=== PATIENT | male | born 1950 | race Caucasian/White ===

== ENCOUNTER 2021-02-12 18:18 | Observation (INO) | payer MEDICARE ==
[2021-02-12] MEDS ORDERED: Sodium Chloride 0.9% 1000 ML 1,000 ML IV STA (19:48)
[2021-02-12] MEDS ORDERED: Zofran 4 MG/2 ML VIAL IV ONE (19:48)
[2021-02-12] MEDS ORDERED: Hydromorphone 1 mg/ml Injection IV ONE (19:48)
[2021-02-12] MEDS ORDERED: PROTONIX 40 MG IV IV ONE ×2 (19:48→19:55)
--- NOTE | 2021-02-12 19:52 | ERPHSYRPT ---
- History of Present Illness Time Seen by Provider: 02/12/21 18:20 Historian: patient Exam Limitations: no limitations Physician History: 70 years old male with history of diabetes mellitus, hypertension presented in the ER with chief complaint of hematuria and abdominal pain. Patient report at 2 PM he started to have hematuria/jaspreet blood in urine and around 5 PM today started epigastric and right-sided abdominal pain moderate to severe sharp nature, partial relief after taking NSAIDs but still rates 9/10 intensity with associated nausea but no vomiting. Denies any significant aggravating factors. Denies any history of hematuria before but does have history of kidney stones in the remote past. Is not taking any blood thinner. No fever or chills reported. Timing/Duration: hour(s) (3), constant, sudden, worse Activities at Onset: rest Quality: sharpness Abdominal Pain Onset Location: RUQ, RLQ, epigastric, flank Pain Radiation: no radiation Severity of Pain-Max: severe Severity of Pain-Current: severe Modifying Factors: Improves With: nothing Associated Symptoms: nausea, No vomiting Previous symptoms: no prior history Allergies/Adverse Reactions: No Known Drug Allergies Allergy (Unverified 02/12/21 20:00) Home Medications: Aspirin 81 gm Chew [Baby Aspirin 81 mg Chew] 81 mg PO DAILY 02/12/21 [History] Dutasteride 0.5 MG [Avodart 0.5 MG] 1 tab PO DAILY 02/12/21 [History] Fenofibrate Nanocrystallized [Fenofibrate] 145 mg PO DAILY 02/12/21 [History] Losartan Potassium 50 mg [Cozaar 50 MG] 50 mg PO DAILY 02/12/21 [History] Metformin HCl [Glucophage] 1,000 mg PO BID 02/12/21 [History] No Reportable Medications [No Reported Medications] 02/12/21 [History] Pravastatin Sodium 40 mg PO HS 02/12/21 [History] Tamsulosin HCl 0.4 mg [Flomax 0.4 MG] 1 tab PO BID 02/12/21 [History] - Review of Systems Constitutional: No Symptoms Eyes: No Symptoms Ears, Nose, & Throat: No Symptoms Respiratory: No Symptoms Cardiac: No Symptoms Abdominal/Gastrointestinal: Abdominal Pain, Nausea Genitourinary Symptoms: Hematuria Musculoskeletal: No Symptoms Skin: No Symptoms Neurological: No Symptoms Psychological: No Symptoms Endocrine: No Symptoms Hematologic/Lymphatic: No Symptoms Immunological/Allergic: No Symptoms - Nursing Vital Signs Nursing Vital Signs: Initial Vital Signs Temperature 96.5 F 02/12/21 19:45 Pulse Rate 53 L 02/12/21 19:45 Respiratory Rate 16 02/12/21 19:45 Blood Pressure 180/78 02/12/21 19:45 O2 Sat by Pulse Oximetry 99 02/12/21 19:45 Pain Scale Pain Intensity 5 - Physical Exam General Appearance: no apparent distress, alert Eye Exam: PERRL/EOMI, eyes nml inspection Ears, Nose, Throat Exam: normal ENT inspection, pharynx normal Neck Exam: normal inspection, supple, full range of motion Respiratory Exam: normal breath sounds, lungs clear Cardiovascular Exam: normal heart sounds, bradycardia Gastrointestinal/Abdomen Exam: tenderness (Epigastric/right upper quadrant and flank), guarding, No normal bowel sounds Back Exam: normal inspection, normal range of motion Extremity Exam: normal inspection, normal range of motion Neurologic Exam: alert, oriented x 3, cooperative Skin Exam: normal color SpO2 Interpretation: normal SpO2: 99 O2 Delivery: Room Air Ordered Tests: Active Orders 24 hr Category Date Time Status Bladder Irrigation STAT Care 02/12/21 19:48 Active IV Insertion STAT Care 02/12/21 19:48 Active NPO (ED) STAT Care 02/12/21 19:48 Active ABDOMEN AND PELVIS W CONTRAST [CT] Stat Exams 02/12/21 19:49 Taken BLOOD CULTURE Stat Lab 02/12/21 20:10 Received CBC W DIFF Stat Lab 02/12/21 20:05 Completed CMP Stat Lab 02/12/21 20:05 Completed CULTURE,URINE Stat Lab 02/12/21 19:50 Received LIPASE Stat Lab 02/12/21 20:05 Completed Lactic Acid Stat Lab 02/12/21 20:15 Completed PROTIME WITH INR Stat Lab 02/12/21 20:10 Completed UA W/RFX UR CULTURE Stat Lab 02/12/21 19:50 Completed Medication Summary Discontinued Medications Generic Name Dose Route Start Last Admin Trade Name Freq PRN Reason Stop Dose Admin Hydromorphone HCl 1 mg 02/12/21 19:48 02/12/21 19:56 Hydromorphone 1 Mg/Ml Injection IV 02/12/21 19:49 1 mg STAT ONE Administration Hydromorphone HCl Confirm 02/12/21 19:56 Hydromorphone 1 Mg/Ml Injection Administered 02/12/21 19:57 Dose 1 mg .ROUTE .STK-MED ONE Sodium Chloride 1,000 mls @ 999 mls/hr 02/12/21 19:48 02/12/21 23:05 Sodium Chloride 0.9% 1000 Ml IV 02/12/21 20:48 Infused .Q1H1M STA Infusion Sodium Chloride Confirm 02/12/21 19:56 Sodium Chloride 0.9% 1000 Ml Administered 02/12/21 19:57 Dose 1,000 mls @ ud .ROUTE .STK-MED ONE Ceftriaxone Sodium/Dextrose 2 g in 50 mls @ 100 mls/hr 02/12/21 20:36 02/12/21 23:06 Rocephin 2 Gm-D5w 50ml Bag IV 02/12/21 21:05 Infused STAT STA Infusion Ceftriaxone Sodium/Dextrose Confirm 02/12/21 20:56 Rocephin 2 Gm-D5w 50ml Bag Administered 02/12/21 20:57 Dose 2 g in 50 mls @ ud IV .STK-MED ONE Ondansetron HCl 4 mg 02/12/21 19:48 02/12/21 19:57 Zofran 4 Mg/2 Ml Vial IV 02/12/21 19:49 4 mg STAT ONE Administration Ondansetron HCl Confirm 02/12/21 19:55 Zofran 4 Mg/2 Ml Vial Administered 02/12/21 19:56 Dose 4 mg .ROUTE .STK-MED ONE Pantoprazole Sodium 40 mg 02/12/21 19:48 02/12/21 19:57 Protonix 40 Mg Iv IV 02/12/21 19:49 40 mg STAT ONE Administration Pantoprazole Sodium Confirm 02/12/21 19:55 Protonix 40 Mg Iv Administered 02/12/21 19:56 Dose 40 mg IV .STK-MED ONE Lab/Rad Data: Laboratory Result Diagrams 02/12/21 20:05 02/12/21 20:05 Laboratory Results 02/12/21 02/12/21 02/12/21 Range/Units 20:15 20:10 20:05 WBC (4.0-10.5) K/mm3 RBC (4.1-5.6) M/mm3 Hgb (12.5-18.0) gm/dl Hct (42-50) % MCV (78-100) fl MCH (26-32) pg MCHC (32-36) g/dl RDW (11.5-14.0) % Plt Count (150-450) K/mm3 MPV (7.5-11.0) fl Gran % (36.0-66.0) % Eos # (Auto) (0-0.5) Absolute Lymphs (auto) (1.0-4.6) Absolute Monos (auto) (0.0-1.3) Lymphocytes % (24.0-44.0) % Monocytes % (0.0-12.0) % Eosinophils % (0.00-5.0) % Basophils % (0.0-0.4) % Absolute Granulocytes (1.4-6.9) Basophils # (0-0.4) PT 13.6 H (9.4-12.5) SECONDS INR 1.15 (0.8-3.0) Sodium 141 (137-145) mmol/L Potassium 3.9 (3.5-5.1) mmol/L Chloride 104 (98-107) mmol/L Carbon Dioxide 27 (22-30) mmol/L Anion Gap 13.7 (5-15) MEQ/L BUN 22 H (9-20) mg/dL Creatinine 1.12 (0.66-1.25) mg/dL Estimated GFR > 60.0 ML/MIN Glucose 112 H (74-106) mg/dL Lactic Acid 1.0 (0.4-2.0) Calcium 9.6 (8.4-10.2) mg/dL Total Bilirubin 0.30 (0.2-1.3) mg/dL AST 20 (17-59) U/L ALT 12 (0-50) U/L Alkaline Phosphatase 34 L (38-126) U/L Serum Total Protein 7.0 (6.3-8.2) g/dL Albumin 4.3 (3.5-5.0) g/dL Lipase 61 (23-300) U/L Urine Color (YELLOW) Urine Appearance (CLEAR) Urine pH (5-6) Ur Specific [place] (1.005-1.025) Urine Protein (Negative) Urine Ketones (NEGATIVE) Urine Blood (0-5) Bakari/ul Urine Nitrite (NEGATIVE) Urine Bilirubin (NEGATIVE) Urine Urobilinogen (0-1) mg/dL Ur Leukocyte Esterase (NEGATIVE) Urine WBC (Auto) (0-5) /HPF Urine RBC (Auto) (0-2) /HPF Urine Bacteria (Auto) (NEGATIVE) /HPF Urine Culture Reflexed (NO) Urine Glucose (NEGATIVE) mg/dL 02/12/21 02/12/21 Range/Units 20:05 19:50 WBC 6.3 (4.0-10.5) K/mm3 RBC 3.80 L (4.1-5.6) M/mm3 Hgb 11.9 L (12.5-18.0) gm/dl Hct 36.9 L (42-50) % MCV 97.1 (78-100) fl MCH 31.3 (26-32) pg MCHC 32.2 (32-36) g/dl RDW 13.7 (11.5-14.0) % Plt Count 287 (150-450) K/mm3 MPV 10.1 (7.5-11.0) fl Gran % 69.7 H (36.0-66.0) % Eos # (Auto) 0 (0-0.5) Absolute Lymphs (auto) 1.17 (1.0-4.6) Absolute Monos (auto) 0.71 (0.0-1.3) Lymphocytes % 18.7 L (24.0-44.0) % Monocytes % 11.3 (0.0-12.0) % Eosinophils % 0.0 (0.00-5.0) % Basophils % 0.3 (0.0-0.4) % Absolute Granulocytes 4.36 (1.4-6.9) Basophils # 0.02 (0-0.4) PT (9.4-12.5) SECONDS INR (0.8-3.0) Sodium (137-145) mmol/L Potassium (3.5-5.1) mmol/L Chloride (98-107) mmol/L Carbon Dioxide (22-30) mmol/L Anion Gap (5-15) MEQ/L BUN (9-20) mg/dL Creatinine (0.66-1.25) mg/dL Estimated GFR ML/MIN Glucose (74-106) mg/dL Lactic Acid (0.4-2.0) Calcium (8.4-10.2) mg/dL Total Bilirubin (0.2-1.3) mg/dL AST (17-59) U/L ALT (0-50) U/L Alkaline Phosphatase (38-126) U/L Serum Total Protein (6.3-8.2) g/dL Albumin (3.5-5.0) g/dL Lipase (23-300) U/L Urine Color RED (YELLOW) Urine Appearance CLOUDY (CLEAR) Urine pH 7.0 (5-6) Ur Specific [place] 1.020 (1.005-1.025) Urine Protein >=500 (Negative) Urine Ketones NEGATIVE (NEGATIVE) Urine Blood LARGE (0-5) Bakari/ul Urine Nitrite NEGATIVE (NEGATIVE) Urine Bilirubin NEGATIVE (NEGATIVE) Urine Urobilinogen 2 (0-1) mg/dL Ur Leukocyte Esterase TRACE (NEGATIVE) Urine WBC (Auto) 6-10 (0-5) /HPF Urine RBC (Auto) >101 (0-2) /HPF Urine Bacteria (Auto) MODERATE (NEGATIVE) /HPF Urine Culture Reflexed YES (NO) Urine Glucose NEGATIVE (NEGATIVE) mg/dL - Progress Progress: improved, re-examined Progress Note: 02/13/21 00:26 He is given fluid bolus along with symptomatic treatment for pain, reevaluation feeling much better. He has a normal white count, grossly unremarkable chemistries, urinalysis consistent with UTI and given IV Rocephin. He is started on continuous bladder irrigation and it is almost cleared up already now. Will finish 1 bag of CBI. I have obtained CT abdomen pelvis with contrast which showed bilateral renal cysts without any hydroureteronephrosis. It did show some duodenal inflammation and some haziness around pancreas but has normal lipase and no significant tenderness on reevaluation. Does have urothelium thickening with questionable element of infection versus neoplasm. I believe patient needs urology evaluation once acute phase is over. I have discussed with Dr. Adkins and patient is being admitted. Discussed with : Mayte Will see patient in: hospital (observation) Counseled pt/family regarding: lab results, diagnosis, rad results - Departure Departure Disposition: Observation Clinical Impression: Hemorrhagic cystitis, Duodenitis Condition: Stable Critical Care Time: No Referrals: RON ADKINS [Primary Care Provider] -
[2021-02-12] MEDS ORDERED: Zofran 4 MG/2 ML VIAL ONE (19:55)
[2021-02-12] MEDS ORDERED: Hydromorphone 1 mg/ml Injection ONE (19:56)
[2021-02-12] MEDS ORDERED: Sodium Chloride 0.9% 1000 ML 1,000 ML ONE (19:56)
[2021-02-12 20:17] LABS: Appearance CLOUDY (CLEAR); Bacteria MODERATE /HPF (NEGATIVE); Bilirubin NEGATIVE (NEGATIVE); Blood LARGE Ery/ul (0-5); Glucose NEGATIVE (NEGATIVE); Ketones NEGATIVE (NEGATIVE); Leukocyte Esterase TRACE (NEGATIVE); Nitrite NEGATIVE (NEGATIVE); Protein,Urine Dip >=500 (Negative); Urobilinogen 2 mg/dL (0-1)
[2021-02-12 20:24] LABS: Absolute Neutrophil Ct (ANC) 4.36 (1.4-6.9); BASOPHIL % 0.3 % (0.0-0.4); Basophil (Absolute #) 0.02 (0-0.4); Eosinophil (Absolute #) 0 (0-0.5); Hematocrit 36.9 % (42-50); Hemoglobin 11.9 gm/dl (12.5-18.0); Lymphocyte (Absolute #) 1.17 (1.0-4.6); Lymphocytes % 18.7 % (24.0-44.0); Mean Cell Volume 97.1 fl (78-100); Mean Corpuscular Hemoglobin 31.3 pg (26-32); Mean Corpuscular Hgb Concent. 32.2 g/dl (32-36); Mean Platelet Volume 10.1 fl (7.5-11.0); Monocyte (Absolute #) 0.71 (0.0-1.3); Monocytes % 11.3 % (0.0-12.0); Neutrophil % 69.7 % (36.0-66.0); Platelet Count 287 K/mm3 (150-450); Red Cell Distribution Width 13.7 % (11.5-14.0); White Blood Count 6.3 K/mm3 (4.0-10.5)
[2021-02-12 20:33] LABS: RBC >101 /HPF (0-2)
[2021-02-12] MEDS ORDERED: ROCEPHIN 2 Gm-D5w 50ML BAG** 2 G/50 ML IVPB IV STA (20:36)
[2021-02-12 20:38] LABS: INR 1.15 (0.8-3.0); PROTIME 13.6 SECONDS (9.4-12.5)
[2021-02-12 20:42] LABS: ALBUMIN 4.3 g/dL (3.5-5.0); ALKALINE PHOSPHATASE 34 U/L (38-126); ANION GAP 13.7 MEQ/L (5-15); BLOOD UREA NITROGEN 22 mg/dL (9-20); CHLORIDE 104 mmol/L (98-107); Calcium 9.6 mg/dL (8.4-10.2); Carbon Dioxide 27 mmol/L (22-30); Creatinine 1 1.12 mg/dL (0.66-1.25); EST GLOMERULAR FILTRATION RATE > 60.0 ML/MIN; Glucose 112 mg/dL (74-106); LIPASE 61 U/L (23-300); Potassium 3.9 mmol/L (3.5-5.1); SGOT/AST 20 U/L (17-59); SGPT/ALT 12 U/L (0-50); SODIUM 141 mmol/L (137-145)
[2021-02-12] MEDS ORDERED: ROCEPHIN 2 Gm-D5w 50ML BAG** 2 G/50 ML IVPB IV ONE (20:56)
[2021-02-12] MEDS ORDERED: HOLD METFORMIN PRODUCTS FOR 48 HOURS MC SCH (22:45)
[2021-02-13] MEDS ORDERED: Sodium Chloride 0.9% W/ 20 mEq KCl/LITER 1,000 ML IV SCH (03:49)
[2021-02-13] MEDS ORDERED: Zofran 4 MG/2 ML VIAL IV PRN (03:49)
[2021-02-13] MEDS ORDERED: MORPHINE SULFATE 4 MG INJ IV PRN (03:49)
[2021-02-13] MEDS ORDERED: HUMALOG SQ PRN (03:49)
[2021-02-13 05:01] LABS: Absolute Neutrophil Ct (ANC) 5.14 (1.4-6.9); BASOPHIL % 0.1 % (0.0-0.4); Basophil (Absolute #) 0.01 (0-0.4); Eosinophil (Absolute #) 0 (0-0.5); Hematocrit 34.1 % (42-50); Lymphocyte (Absolute #) 1.22 (1.0-4.6); Lymphocytes % 17.7 % (24.0-44.0); Mean Cell Volume 96.6 fl (78-100); Mean Corpuscular Hemoglobin 31.2 pg (26-32); Mean Corpuscular Hgb Concent. 32.3 g/dl (32-36); Mean Platelet Volume 10.6 fl (7.5-11.0); Monocyte (Absolute #) 0.52 (0.0-1.3); Monocytes % 7.5 % (0.0-12.0); Neutrophil % 74.7 % (36.0-66.0); Platelet Count 277 K/mm3 (150-450); Red Blood Count 3.53 M/mm3 (4.1-5.6); Red Cell Distribution Width 13.5 % (11.5-14.0); White Blood Count 6.9 K/mm3 (4.0-10.5)
[2021-02-13 05:20] LABS: ALBUMIN 3.5 g/dL (3.5-5.0); ALKALINE PHOSPHATASE 30 U/L (38-126); ANION GAP 11.8 MEQ/L (5-15); BLOOD UREA NITROGEN 18 mg/dL (9-20); CHLORIDE 105 mmol/L (98-107); Calcium 8.8 mg/dL (8.4-10.2); Carbon Dioxide 25 mmol/L (22-30); Creatinine 1 0.93 mg/dL (0.66-1.25); EST GLOMERULAR FILTRATION RATE > 60.0 ML/MIN; Glucose 104 mg/dL (74-106); Potassium 4.1 mmol/L (3.5-5.1); SGOT/AST 18 U/L (17-59); SGPT/ALT 10 U/L (0-50); SODIUM 138 mmol/L (137-145); Total Protein 5.9 g/dL (6.3-8.2)
--- NOTE | 2021-02-13 09:05 | XRAY ---
Indication: Right abdomen pain and hematuria. Multiple contiguous images obtained through the abdomen and pelvis using 80 cc Isovue 370 contrast. Comparison: None Lung bases demonstrates minimal dependent atelectasis. No infiltrate or effusion. Heart is not enlarged. Small hiatal hernia. Noncontrasted stomach and bowel loops appear nonobstructed. Descending duodenum demonstrates circumferential wall thickening with stranding favoring duodenitis. Normal appendix. There is mild diffuse scattered colonic fecal debris throughout. Liver demonstrates a few tiny hypodensities unchanged on delayed imaging, possible cysts. Both kidneys enhance and excrete and demonstrates multiple bilateral renal cysts, largest on the right measuring 7 cm. No hydronephrosis or hydroureter. Urinary bladder demonstrates 1.5 x 3.7 cm posterior wall calcification with adjacent wall irregularity/thickening worrisome for malignancy. Remaining gallbladder, pancreas, spleen, adrenal glands, and ureters are unremarkable. Mild scattered aortoiliac calcifications. No AAA or pathologic retroperitoneal lymphadenopathy. Osseous structures intact with minimal/mild degenerative changes throughout the thoracolumbar spine. Small fatty right inguinal hernia. Impression: 1. Duodenal circumferential wall thickening with stranding favoring duodenitis. 2. Large posterior urinary bladder wall calcification with adjacent wall irregularity/thickening worrisome for malignancy. 3. Small hiatal hernia, diffuse fecal stasis, small fatty right inguinal hernia, and probable tiny hepatic cysts. Comment: Preliminary interpretation was made by [facility]. No critical discrepancy.
[2021-02-13] MEDS ORDERED: Flonase NASAL NS PRN (09:14)
[2021-02-13] MEDS ORDERED: PROTONIX 40 MG IV IV SCH (10:00)
[2021-02-13] MEDS ORDERED: Cozaar 50 MG PO SCH (10:00)
[2021-02-13] MEDS ORDERED: Tricor 145 MG PO SCH (10:00)
[2021-02-13] MEDS ORDERED: Flomax 0.4 MG PO SCH (10:00)
[2021-02-13] MEDS ORDERED: ECOTRIN 81 MG PO SCH (10:00)
[2021-02-13] MEDS ORDERED: Avodart 0.5 MG PO SCH (10:00)
--- NOTE | 2021-02-13 10:57 | XRAY ---
Indication: Gross hematuria. Thickened urinary bladder wall on recent CT. Sonogram markedly limited as the urinary bladder is empty with a Cabral balloon catheter in situ. There is posterior bladder wall hyperechogenicity corresponding to CT proven calcification.
[2021-02-13 11:54] VITALS: BP 145/67; PULSE 47; O2SAT 98
[2021-02-13] MEDS ORDERED: NON-FORMULARY ITEM (Pravastatin Sodium [Pravastatin Sodium] 40 MG) PO SCH (22:00)
[2021-02-13] MEDS ORDERED: Neurontin 100 MG PO SCH (22:00)
[2021-02-13] MEDS ORDERED: ROCEPHIN 2 Gm-D5w 50ML BAG** 2 G/50 ML IVPB IV SCH (22:00)
[2021-02-13] MEDS ORDERED: ZOCOR 20MG PO SCH (22:00)
[2021-02-15] MEDS ORDERED: Glucophage 500 MG PO SCH (08:00)
--- NOTE | 2021-02-18 16:49 | PCM.SSS ---
History of Present Illness - Chief Complaint Chief Complaint: Hemorrhagic cystitis, duodenitis Date: 02/13/21 History of Present Illness: is a 70 year old male. Presented to ER after gradual increasing amounts of blood in his urine then having some upper abdominal pain, with jaspreet blood in the urine. Pt. had bladder irrigation initiated in ER and admitted for further evaluation. - Review of Systems Constitutional: No Fever, No Chills Eyes: No Symptoms Ears, Nose, & Throat: No Symptoms Respiratory: No Cough, No Short Of Breath Cardiac: No Chest Pain, No Edema, No Syncope Abdominal/Gastrointestinal: No Abdominal Pain, No Nausea, No Vomiting, No Diarrhea Genitourinary Symptoms: Hematuria, Hesitancy, No Dysuria Musculoskeletal: No Back Pain, No Neck Pain Skin: No Rash Neurological: No Dizziness, No Focal Weakness, No Sensory Changes Psychological: No Symptoms Endocrine: No Symptoms Hematologic/Lymphatic: No Symptoms Immunological/Allergic: No Symptoms Medications & Allergies Home Medications: Home Medication List Aspirin 81 gm Chew [Baby Aspirin 81 mg Chew] 81 mg PO DAILY 02/12/21 [History Confirmed 02/12/21] Dutasteride 0.5 MG [Avodart 0.5 MG] 1 tab PO DAILY 02/12/21 [History Confirmed 02/12/21] Fenofibrate Nanocrystallized [Fenofibrate] 145 mg PO DAILY 02/12/21 [History Confirmed 02/12/21] Losartan Potassium 50 mg [Cozaar 50 MG] 50 mg PO DAILY 02/12/21 [History Confirmed 02/12/21] Metformin HCl [Glucophage] 1,000 mg PO BID 02/12/21 [History Confirmed 02/12/21] Pravastatin Sodium 40 mg PO HS 02/12/21 [History Confirmed 02/12/21] Tamsulosin HCl 0.4 mg [Flomax 0.4 MG] 1 tab PO BID 02/12/21 [History C onfirmed 02/12/21] Fluticasone Propionate [Flonase NASAL] 16 gm NS DAILY PRN PRN 02/13/21 [History Confirmed 02/13/21] Gabapentin 100 mg [Neurontin 100 MG] 100 mg PO HS 02/13/21 [History C onfirmed 02/13/21] Smz/Tmp Ds Tablet [Bactrim Ds Tablet] 1 tab PO BID 10 Days #20 tablet 02/13/21 [Rx] Allergies/Adverse Reactions: Allergies Allergy/AdvReac Type Severity Reaction Status Date / Time No Known Drug Allergies Allergy Unverified 02/12/21 20:00 - Past Medical History Past Medical History: Yes Neurological History: No Pertinent History ENT History: No Pertinent History Cardiac History: High Cholesterol, Hypertension, Other Respiratory History: Bronchitis Endocrine Medical History: Diabetes Type II Musculoskelatal History: Arthritis, Fractures GI Medical History: GERD History: No Pertinent History Pyscho-Social History: No Pertinent History Male Reproductive Disorders: Prostate Problems Comment: heart murmur - Past Surgical History Past Surgical History: Yes Neuro Surgical History: No Pertinent History Cardiac History: No Pertinent History Respiratory Surgery: No Pertinent History GI Surgical History: Hernia Repair Genitourinary Surgical Hx: No Pertinent History Musculskeletal Surgical Hx: No Pertinent History Male Surgical History: No Pertinent History - Social History Smoking Status: Never smoker Exposure to second hand smoke: Yes Alcohol: Occasionally Drug Use: none - Physical Exam General Appearance: no apparent distress, alert Neurologic Exam: alert, oriented x 3, cooperative, normal mood/affect, nml cerebellar function, sensation nml, No motor deficits Eye Exam: PERRL/EOMI, eyes nml inspection Ears, Nose, Throat Exam: normal ENT inspection, pharynx normal, moist mucous membranes Neck Exam: normal inspection, non-tender, supple, full range of motion Respiratory Exam: normal breath sounds, lungs clear, No respiratory distress Cardiovascular Exam: regular rate/rhythm, normal heart sounds, normal peripheral pulses Gastrointestinal/Abdomen Exam: soft, normal bowel sounds, No tenderness, No mass Back Exam: normal inspection, normal range of motion, No CVA tenderness, No vertebral tenderness Extremity Exam: normal inspection, normal range of motion, pelvis stable Skin Exam: normal color, warm, dry, No rash Lymphatic Exam: No adenopathy Results - Labs Lab/Micro Results: Microbiology 02/12/21 20:10 Blood Culture Gram Stain - Final Blood Not Reportable Blood Culture - Final NO GROWTH 02/12/21 20:05 Blood Culture Gram Stain - Final Blood Not Reportable Blood Culture - Final NO GROWTH 02/12/21 19:50 Urine Culture - Final Clean Catch Midstream [facility] HOMINIS ssp HOMINIS Assessment/Plan (1) Duodenitis Status: Acute Code(s): K29.80 - DUODENITIS WITHOUT BLEEDING (2) Hemorrhagic cystitis Status: Acute Code(s): N30.91 - CYSTITIS, UNSPECIFIED WITH HEMATURIA Hospital Summary - Hospital Course Hospital Course: Pt. admitted for continued bladder irrigation and iv antibiotics, the pt. urine had significantly cleared by the following am, had no pain, urinating without difficulty and was ready for discharge. Pt. will be scheduled for further evaluation with urology for direct visualization of the bladder to rule out poss ible bladder tumor as etiology of the bleeding. Pt. voiced understanding and was ready and comfortable for discharge. - Vitals & Intake/Output Vital Signs: Vital Signs Temperature 98.4 F 02/13/21 11:53 Pulse Rate 47 L 02/13/21 11:53 Respiratory Rate 18 02/13/21 11:53 Blood Pressure 145/67 02/13/21 11:53 O2 Sat by Pulse Oximetry 98 02/13/21 11:53 - Lab Result Diagrams: 02/13/21 04:20 02/13/21 04:20 Micro Results-Entire Visit: Microbiology 02/12/21 20:10 Blood Culture Gram Stain - Final Blood Not Reportable Blood Culture - Final NO GROWTH 02/12/21 20:05 Blood Culture Gram Stain - Final Blood Not Reportable Blood Culture - Final NO GROWTH 02/12/21 19:50 Urine Culture - Final Clean Catch Midstream ST[facility] HOMINIS ssp HOMINIS - Discharge Discharge Date: 02/13/21 Disposition: Home, Self-Care Condition: Stable Prescriptions: New Smz/Tmp Ds Tablet [Bactrim Ds Tablet] 1 tab PO BID 10 Days #20 tablet No Action Tamsulosin HCl 0.4 mg [Flomax 0.4 MG] 1 tab PO BID Pravastatin Sodium 40 mg PO HS Metformin HCl [Glucophage] 1,000 mg PO BID Losartan Potassium 50 mg [Cozaar 50 MG] 50 mg PO DAILY Fenofibrate Nanocrystallized [Fenofibrate] 145 mg PO DAILY Dutasteride 0.5 MG [Avodart 0.5 MG] 1 tab PO DAILY Aspirin 81 gm Chew [Baby Aspirin 81 mg Chew] 81 mg PO DAILY Gabapentin 100 mg [Neurontin 100 MG] 100 mg PO HS Fluticasone Propionate [Flonase NASAL] 16 gm NS DAILY PRN PRN PRN Reason: Allergies Instructions: Blood in the Urine (Hematuria), Adult (DC) Follow up with: RON ADKINS [Primary Care Provider] - 02/26/21 10:45 am RON SILVERMAN MD [NON-STAFF PHY W/O PRIVILEGES] - 02/19/21 2:00 pm Forms: Discharge Instructions
== END 2021-02-13 13:30 | disposition home or self-care (01) ==
LOC: ED 18:18 → MED SURG 02-13 03:44
PROVIDERS: ADMIT Family Medicine; ATTEND Family Medicine
DX: K29.80 Duodenitis without bleeding (principal); N30.91 Cystitis, unspecified with hematuria; I10 Essential (primary) hypertension; E11.9 Type 2 diabetes mellitus without complications; Z79.899 Other long term (current) drug therapy; Z20.828 Contact with and (suspected) exposure to other viral communicable diseases; E78.00 Pure hypercholesterolemia, unspecified
CPT/HCPCS: 36000; 36415; 74177; 76705; 80053; 81001; 82947; 83605; 83690; 85025; 85610; 87040; 87077; 87086; 87186; 96360; 96374; 99285; G0378; U0003; J0696; J1170; J2405; A9270-GY

== ENCOUNTER 2025-06-02 08:07 | Emergency (ER) | payer MEDICARE ==
[2025-06-02 08:15] VITALS: TEMP 97.5
[2025-06-02] MEDS ORDERED: Compazine 10 MG/2 ML ONE (08:29)
[2025-06-02] MEDS: Compazine 10 MG/2 ML IV ONE (08:31)
[2025-06-02 08:38] LABS: BASOPHIL % 1.2 % (0.2-1.2); Basophil (Absolute #) 0.06 x10^3/uL (0.01-0.08); Eosinophil (Absolute #) 0.15 x10^3/uL (0.04-0.54); Hematocrit 42.6 % (40.1-51.0); Hemoglobin 14.8 g/dL (13.7-17.5); IMMATURE GRAN # 0.02 x10^3u/L (0.001-0.031); IMMATURE GRAN % 0.4 % (0.001-0.429); Lymphocyte (Absolute #) 0.92 x10^3/uL (1.32-3.57); Mean Corpuscular Hemoglobin 31.5 pg (25.7-32.2); Mean Corpuscular Hgb Concent. 34.7 g/dL (32.3-36.5); Monocyte (Absolute #) 0.37 x10^3/uL (0.30-0.82); NUCLEATED RBC # 0.00 x10^3u/L (0.00-0.012); NUCLEATED RBC % 0.0 % (0.00-0.2); Platelet Count 214 x10^3/uL (163-337); Red Blood Count 4.70 x10^6/uL (4.63-6.08); White Blood Count 4.9 x10^3/uL (4.23-9.07)
[2025-06-02 08:58] LABS: Calcium 9.3 mg/dL (8.4-10.2); Carbon Dioxide 26.0 mmol/L (22-30); Creatinine 1 1.2 mg/dL (0.66-1.25); EST GLOMERULAR FILTRATION RATE 63.5 ML/MIN; Glucose 219.0 mg/dL (74-106); Potassium 4.2 mmol/L (3.5-5.1); SGOT/AST 19.0 U/L (17-59); SGPT/ALT 15.0 U/L (0-50); Total Protein 6.8 g/dL (6.3-8.2)
--- NOTE | 2025-06-02 09:33 | ERPHSYRPT ---
- History of Present Illness Patient Subjective Stated Complaint: PT HERE FOR DIZZINESS THAT STARTED THIS MORNONG ABOUT 0630, HE STATES HE FEELS LIKE ROOM IS SPINNING WHEN HE IS UP, NO DIZZINESS WHEN LAYING STILL Triage Nursing Assessment: PT ALERT, WALKED IN, RESP EASY, NO COUGH, SKIN W/D/P. MOVES ALL EXT WELL,DENIES ANY CO'S AT THIS TIME, ABD SOFT Physician History: Dizziness onset this morning, patient awoke and developed vertigo, symptoms only when standing, he called EMS, he denied any weakness to his upper or lower extremities, he denied headache, no symptoms yesterday, he denies any recent URI type symptoms, he denies any cough or shortness of breath Timing/Duration: today Severity: moderate Character of Deficits: other (Vertigo) Deficits: decrease ability to stand Baseline/Normal Cognition: alert oriented x 3 Current Cognition: alert oriented x 3 Baseline Gait: walks w/o assistance Associated Symptoms: denies symptoms Allergies/Adverse Reactions: No Known Drug Allergies Allergy (Verified 06/02/25 08:09) Home Medications: Dutasteride 0.5 MG [Avodart 0.5 MG] 0.5 mg PO DAILY 02/12/21 [History] Fenofibrate Nanocrystallized [Fenofibrate] 145 mg PO DAILY 02/12/21 [History] Losartan Potassium 50 mg [Cozaar 50 MG] 50 mg PO DAILY 02/12/21 [History] Pravastatin Sodium 40 mg PO HS 02/12/21 [History] Gabapentin [Neurontin 100 MG] 300 mg PO HS 02/13/21 [History] Amlodipine Besylate 10 mg PO DAILY 06/02/25 [History] Famotidine 40 mg PO DAILY 06/02/25 [History] Ferrous Sulfate 325 mg [Feosol 325 mg] 325 mg PO DAILY 06/02/25 [History] Glimepiride 4 mg [Amaryl 4 mg] 4 mg PO DAILY 06/02/25 [History] Hx Tetanus, Diphtheria Vaccination/Date Given: No Hx Influenza Vaccination/Date Given: No Hx Pneumococcal Vaccination/Date Given: No Immunizations Up to Date: Yes Travel Risk - International Travel Have you traveled outside of the country in past 3 weeks: No - Emerging Infectious Disease Are you exhibiting symptoms associated with any current EIDs: No - Past Medical History Pertinent Past Medical History: Yes Neurological History: No Pertinent History ENT History: No Pertinent History Cardiac History: High Cholesterol, Hypertension, Other Respiratory History: Bronchitis Endocrine Medical History: Diabetes Type II Musculoskeletal History: Arthritis, Fractures GI Medical History: GERD History: No Pertinent History Psycho-Social History: No Pertinent History Male Reproductive Disorders: Prostate Problems Other Medical History: heart murmur - Past Surgical History Past Surgical History: Yes Neuro Surgical History: No Pertinent History Cardiac: No Pertinent History Respiratory: No Pertinent History Gastrointestinal: Hernia Repair Genitourinary: No Pertinent History Musculoskeletal: No Pertinent History Male Surgical History: No Pertinent History - Social History Smoking Status: Former smoker Exposure to second hand smoke: No Drug Use: none - Social Determinants of Health Will the patient participate in the screening: Declined to provide - Nursing Vital Signs Nursing Vital Signs: Initial Vital Signs Pulse Rate 49 L 06/02/25 08:08 Respiratory Rate 6 L 06/02/25 08:08 Blood Pressure 152/78 06/02/25 08:08 Pain Scale Pain Intensity 4 - Physical Exam General Appearance: no apparent distress, alert Eye Exam: bilateral eye: PERRL, EOMI, other (Nystagmus to the left) Ears, Nose, Throat Exam: normal ENT inspection, moist mucous membranes Neck Exam: normal inspection, non-tender, supple Respiratory: normal breath sounds, lungs clear, airway intact, No respiratory distress Cardiovascular: regular rate/rhythm, No edema Gastrointestinal: soft, No tenderness, No distention Back Exam: normal inspection Extremity Exam: normal inspection, No pedal edema Mental Status: alert, oriented x 3 vamp marker Exam: tongue midline Coordination/Gait: normal finger to nose, normal gait Motor/Sensory: no motor deficit Skin Exam: normal color, warm, dry, No rash SpO2 Interpretation: normal SpO2: 96 Ordered Tests: Active Orders 24 hr Category Date Time Status EKG-ER Only STAT Care 06/02/25 08:15 Active CHEST 1 VIEW (PORTABLE) Stat Exams 06/02/25 08:16 Taken HEAD WITHOUT CONTRAST [CT] Stat Exams 06/02/25 08:16 Completed CBC W DIFF Stat Lab 06/02/25 08:30 Completed CMP Stat Lab 06/02/25 08:30 Completed Lactic Acid Stat Lab 06/02/25 08:32 Completed TROPONIN Q4H Lab 06/02/25 08:30 Completed TROPONIN Q4H Lab 06/02/25 12:30 Ordered TROPONIN Q4H Lab 06/02/25 16:30 Ordered Medication Summary Discontinued Medications Generic Name Dose Route Start Last Admin Trade Name Aida PRN Reason Stop Dose Admin Sodium Chloride 500 mls @ 500 mls/hr 06/02/25 08:17 06/02/25 09:55 Sodium Chloride 0.9% 500 Ml IV 06/02/25 09:16 Infused .Q1H ONE Infusion Sodium Chloride Confirm 06/02/25 08:29 Sodium Chloride 0.9% 500 Ml Administered 06/02/25 08:30 Dose 500 mls @ ud IV .STK-[employer] ONE Prochlorperazine Edisylate 5 mg 06/02/25 08:17 06/02/25 08:31 Prochlorperazine Edisylate 10 Mg/2 Ml Vial IV 06/02/25 08:18 5 mg STAT ONE Administration Prochlorperazine Edisylate Confirm 06/02/25 08:29 Prochlorperazine Edisylate 10 Mg/2 Ml Vial Administered 06/02/25 08:30 Dose 10 mg .ROUTE .STK-MED ONE Lab/Rad Data: Laboratory Result Diagrams 06/02/25 08:30 06/02/25 08:30 Laboratory Results 06/02/25 06/02/25 06/02/25 Range/Units 08:32 08:30 08:30 WBC (4.23-9.07) x10^3/uL RBC (4.63-6.08) x10^6/uL Hgb (13.7-17.5) g/dL Hct (40.1-51.0) % MCV (79.0-92.2) fL MCH (25.7-32.2) pg MCHC (32.3-36.5) g/dL RDW (11.6-14.4) % Plt Count (163-337) x10^3/uL MPV (9.4-12.4) fL Gran % (34.0-67.9) % Immature Gran % (Auto) (0.001-0.429) % Nucleat RBC Rel Count (0.00-0.2) % Eos # (Auto) (0.04-0.54) x10^3/uL Immature Gran # (Auto) (0.001-0.031) x10^3u/L Absolute Lymphs (auto) (1.32-3.57) x10^3/uL Absolute Monos (auto) (0.30-0.82) x10^3/uL Absolute Nucleated RBC (0.00-0.012) x10^3u/L Lymphocytes % (21.8-53.1) % Monocytes % (5.3-12.2) % Eosinophils % (0.8-7.0) % Basophils % (0.2-1.2) % Absolute Granulocytes (1.78-5.38) x10^3/uL Basophils # (0.01-0.08) x10^3/uL Sodium 134 L (135-145) mmol/L Potassium 4.2 (3.5-5.1) mmol/L Chloride 100 (98-107) mmol/L Carbon Dioxide 26 (22-30) mmol/L Anion Gap 12.6 (5-15) MEQ/L BUN 18 (9-20) mg/dL Creatinine 1.20 (0.66-1.25) mg/dL Estimated GFR 63.5 ML/MIN Glucose 219 H (74-106) mg/dL Lactic Acid 1.0 (0.4-2.0) Calcium 9.3 (8.4-10.2) mg/dL Total Bilirubin 0.70 (0.2-1.3) mg/dL AST 19 (17-59) U/L ALT 15 (0-50) U/L Alkaline Phosphatase 50 (38-126) U/L Troponin I < 0.012 (0.000-0.033) ng/mL Serum Total Protein 6.8 (6.3-8.2) g/dL Albumin 4.3 (3.5-5.0) g/dL 06/02/25 Range/Units 08:30 WBC 4.9 (4.23-9.07) x10^3/uL RBC 4.70 (4.63-6.08) x10^6/uL Hgb 14.8 (13.7-17.5) g/dL Hct 42.6 (40.1-51.0) % MCV 90.6 (79.0-92.2) fL MCH 31.5 (25.7-32.2) pg MCHC 34.7 (32.3-36.5) g/dL RDW 11.4 L (11.6-14.4) % Plt Count 214 (163-337) x10^3/uL MPV 10.4 (9.4-12.4) fL Gran % 68.7 H (34.0-67.9) % Immature Gran % (Auto) 0.4 (0.001-0.429) % Nucleat RBC Rel Count 0.0 (0.00-0.2) % Eos # (Auto) 0.15 (0.04-0.54) x10^3/uL Immature Gran # (Auto) 0.02 (0.001-0.031) x10^3u/L Absolute Lymphs (auto) 0.92 L (1.32-3.57) x10^3/uL Absolute Monos (auto) 0.37 (0.30-0.82) x10^3/uL Absolute Nucleated RBC 0.00 (0.00-0.012) x10^3u/L Lymphocytes % 19.0 L (21.8-53.1) % Monocytes % 7.6 (5.3-12.2) % Eosinophils % 3.1 (0.8-7.0) % Basophils % 1.2 (0.2-1.2) % Absolute Granulocytes 3.33 (1.78-5.38) x10^3/uL Basophils # 0.06 (0.01-0.08) x10^3/uL Sodium (135-145) mmol/L Potassium (3.5-5.1) mmol/L Chloride (98-107) mmol/L Carbon Dioxide (22-30) mmol/L Anion Gap (5-15) MEQ/L BUN (9-20) mg/dL Creatinine (0.66-1.25) mg/dL Estimated GFR ML/MIN Glucose (74-106) mg/dL Lactic Acid (0.4-2.0) Calcium (8.4-10.2) mg/dL Total Bilirubin (0.2-1.3) mg/dL AST (17-59) U/L ALT (0-50) U/L Alkaline Phosphatase (38-126) U/L Troponin I (0.000-0.033) ng/mL Serum Total Protein (6.3-8.2) g/dL Albumin (3.5-5.0) g/dL - Progress Progress Note: 06/02/25 10:37 Clinically improved, dizziness resolved, discussed CT and lab results, he was ambulated Emergency Department without any symptoms, he be discharged with outpatient follow-up - Departure Departure Disposition: Home Clinical Impression: Vertigo Hyperglycemia due to type 2 diabetes mellitus Qualifiers: Diabetes mellitus manager long term care insulin use: without assisted use Qualified Code(s): E11.65 - Type 2 diabetes mellitus with hyperglycemia Condition: Stable Critical Care Time: No Referrals: RON ADKINS MD [Primary Care Provider, [facility]] - Follow up with PCP 4 days Instructions: Vertigo (a Type of Dizziness) (DC)
--- NOTE | 2025-06-02 09:36 | XRAY ---
CLINICAL HISTORY: dizzy COMPARISON: 01/22/2021 CT. TECHNIQUE: Axial non-contrast CT scan of the brain was performed from the skull base to the high parietal region. One of the following dose reduction techniques was utilized for this exam: automated exposure control, adjustment of the mA and/or kV according to patient size, and use of iterative reconstruction. DLP: 1016 mGy-cm, CTDI: 53 mGy. FINDINGS: Brain Parenchyma: There are ill-defined iso- to hypodense areas noted in the subcortical and periventricular white matter bilaterally, suggestive of microvascular ischemic changes. Chronic lacunar infarct in the right basal ganglia. Normal attenuation of the remainder of the cerebral hemispheres, cerebellum, and brainstem. No evidence of acute infarct, hemorrhage, or mass effect. Ventricular System: The ventricular system, cortical sulci, and basal cisterns are prominent, consistent with senile changes. Subarachnoid Spaces: No evidence of subarachnoid hemorrhage or extra-axial fluid collections. Cerebellum and Brainstem: No masses, lesions, or areas of abnormal density. Orbits: Normal appearance of the globes, optic nerves, and extraocular muscles. No evidence of orbital masses or abnormal density. Sinuses: Clear paranasal sinuses. No evidence of sinusitis or mucosal thickening. Mastoid Air Cells: Clear mastoid air cells. No evidence of mastoiditis. Skull: Normal skull morphology. IMPRESSION: 1. No acute abnormality detected on plain CT head at present. 2. Chronic microvascular ischemic changes and senile cortical atrophy, stable. 3. Chronic lacunar infarct in the right basal ganglia. Electronically Signed by: Sd Hammer MD. (06/02/2025 09:34:17 EST)
[2025-06-02 10:32] VITALS: BP 134/67; PULSE 51; RESP 22
[2025-06-02 10:41] VITALS: O2SAT 96
--- NOTE | 2025-06-02 19:04 | XRAY ---
Indication: Dizziness. Comparison: January 22, 2021 Portable chest again hyperinflated and clear with a few incidental tiny calcified granulomas. Heart not enlarged. Bony thorax intact with osteopenia and minimal degenerative changes. Impression: Nonacute hyperinflated chest with chronic features.
== END 2025-06-02 10:57 | disposition home or self-care (01) ==
LOC: ED 08:07
DX: R42 Dizziness and giddiness (principal); E11.65 Type 2 diabetes mellitus with hyperglycemia; I10 Essential (primary) hypertension; Z79.84 Long term (current) use of oral hypoglycemic drugs; Z79.899 Other long term (current) drug therapy